=== PATIENT | female | born 1980 | race Caucasian/White ===

== ENCOUNTER 2017-08-15 18:51 | Emergency (ER) | payer SELFPAY ==
--- NOTE | 2017-08-15 19:07 | EDPHY ---
H & P Smoking Status: Never smoked <Maribel Molina - Last Filed: 08/15/17 20:02> <Jose AlejandroRandy Negro - Last Filed: 08/16/17 01:36> Time Seen by Provider: 08/15/17 19:04 HPI/ROS: 37-year-old female presents complaining of severe lower abdominal pain, she is approximately 48 hr status post hysteroscopic ablation of fibroids. Initially she does had some mild cramping and light bleeding however today she has had severe pain all day long with associated nausea and vomiting. (Maribel Molina) Past Medical/Surgical History: right ankle surgery, tendon repair Fibroids (Maribel Molina) Social History: No alcohol or drug use (Maribel Molina) Physical Exam: 37-year-old female in severe distress secondary to lower abdominal pain, vital signs stable, low-grade fever 37.7 HEENT atraumatic normocephalic, extraocular muscles intact, anicteric Oropharynx negative for erythema negative exudate, tolerating her own secretions Neck supple no meningismus Lungs clear to auscultation bilaterally Heart regular rate and rhythm without murmur rub or gallop Abdomen appears mildly distended, bowel sounds quiet, diffuse tenderness from umbilicus to suprapubic area, with positive guarding Nontender above umbilicus Back no CVA tenderness, no step-offs, no spinal tenderness Extremities no cyanosis clubbing or edema right lower ext -ankle with recent surgery, well healing in appearance no calf tenderness Neuro alert and oriented, no focal deficits (Maribel Molina) Constitutional: Initial Vital Signs Temperature (C) 37.7 C 08/15/17 18:52 Heart Rate 86 08/15/17 18:52 Respiratory Rate 18 08/15/17 18:52 Blood Pressure 129/83 H 08/15/17 18:52 O2 Sat (%) 96 08/15/17 18:52 O2 Delivery Mode Room Air Allergies/Adverse Reactions: Sulfa (Sulfonamide Antibiotics) [Sulfa(Sulfonamide Antibiotics)] Allergy ( Verified 08/03/14 10:58) Home Medications: Medication Instructions Recorded Ondansetron Odt [Zofran Odt 4 mg 4 mg PO Q4 PRN #12 tab 08/03/14 (RX)] Macrobid 100 mg Capsule 100 mg 08/15/17 Medical Decision Making <Maribel Molina - Last Filed: 08/15/17 20:02> - Diagnostics Imaging: Discussed imaging studies w/ manufacturing technologist Radiologist <Randy Blount - Last Filed: 08/16/17 01:36> - Diagnostics Imaging Results: Imaging Impressions Abdomen CT 08/15/17 19:36 Impression: 1. Posterior cul-de-sac fluid collection of 6.2 x 4.2 x 4 cm. This may be normal postoperative fluid from ablation, but abscess cannot be excluded. 2. Fluid in the endometrial cavity, with a speckle of air. Endometritis is not excluded. Again, this could also be normal postablation findings. 3. Serpiginous structures, with wall enhancement, right worse than left. Differential includes small bowel fluid-filled loops in the setting of localized ileus from surrounding inflammation, versus salpingitis. The latter is considered because the patient has really no small bowel loops extending down to the pelvis otherwise. 4. Right ovarian cyst. Findings and recommendations discussed with Maribel Molina M.D., at 2108 hours, on 08/15/2017. Final report concurs with initial preliminary interpretation. E:amm ED Course/Re-evaluation: Pt seen and eval begun for lower abd pain s/p hysteroscopy. IV normal saline started Fentanyl 50 mcg given for pain Ondansetron 4 mg given for nausea, repeated x1 Ceftriaxone 2 g IV piggyback ordered to cover endometritis and bowel odette Labs CBC WBC elevated 20 Lactate within normal limits Basic metabolic panel within normal limits CT abdomen and pelvis with contrast pending Impression Rule out endometritis, uterine perforation Plan Patient endorsed to Dr. Blount pending CT abdomen and likely admit to the electromechanical equipment tester covering the one who performed her procedure. She is admitting at [facility] today. (Maribel Molina) I assumed care of the patient at [address] in [address] scan at this point in time. Case reviewed with Dr. Molina. Patient interviewed and examined. CHIEF COMPLAINT: Severe bilateral lower abdominal pain HISTORY OF PRESENT ILLNESS: This is a 29-year-old female who is approximately 48 hr status post hysteroscopy with a uterine ablation. She had postop pain similar to what she had in the past with hysteroscopy for that night as well as yesterday. However since early this morning, approximately 6:00 a.m. she has had a progressive steady constant, getting worse, pain in the lower abdomen. It does not radiate to the back. Is localized to the lower abdomen both right and left. It is so bad that she is unable to stand up straight and hurts when she walks. There has been some attempts at her to take some fluids and to get up but each time she vomited. Total of 2 times. There has been no emesis, no diarrhea. She has had some mild vaginal bleeding. The pain is severe, unrelenting, sharp, does not radiate, and has not been improved by [id number] medicines at home. Initially she went to [facility] but as there was a 2 her weight she opted to come over here because she was in so much pain.. Of note, on Dr. Molina's exam she finds her to have acute abdomen, which I agree, and the plan is for to be admitted however a CT scan is pending to rule out perforation. Patient relates that she has had some mild terminal dysuria for several weeks. When seen preoperatively 8 days ago in the office urinalysis was performed. Your results were phoned to her on Friday, August 13 and she was initiated on Macrobid therapy having taking it for the 48 hr prior to the surgical procedure. Thus evidently the culture results were known at the time of backward selection. I have made attempts to get access to would review this urinalysis and culture results on the [facility] web site but have been unable to find anything related to that. REVIEW OF SYSTEMS: Constitutional: No fever, no chills - but she has a mild low-grade fever 37.7 here Eyes: No discharge ENT: No sore throat. Cardiovascular: No chest pain, no palpitations. Respiratory: No cough, shortness of breath, or wheezing. Gastrointestinal: See above Genitourinary: See above Musculoskeletal: No back pain. Skin: No rashes. Neurological: No headache. 10 point ROS otherwise negative General Appearance: Alert, no distress. Mild fever noted on vital signs however she does not feel overtly warm to the touch. Normal phonation. No respiratory distress. Looks to be in pain Eyes: Pupils equal and round no pallor or injection. No icterus ENT, Mouth: Mucous membranes slightly dry Pharynx without erythema or exudate. TM Clear. Neck: No adenopathy. Supple. No JVD. Trachea in midline. Respiratory: There are no retractions, lungs are clear to auscultation. Chest wall: Nontender to palpation. No crepitus. Cardiovascular: Regular rate and rhythm, without murmur. Abdomen: There is tenderness with rebound guarding to the bilateral lower quadrants left equals right with percussion sensitivity as well., no masses, bowel sounds normal. Bowel sounds are present Neurological: Ox3. No motor weakness. Sensation intact. Gait nl. Skin: Warm and dry, no rashes. Musculoskeletal: No joint swelling. Extremities: No edema. Homans sign negative. No cords. Psychiatric: Normal affect. Patient is oriented X 3. There is no agitation Interventions to date hip included: fentanyl 50 mcg IV as well as a 2nd L of IV fluids hanging as well as 2 g of ceftriaxone. She was going to try to give us a urine prior to the ceftriaxone 2044:Laboratory review as follows: White count 20.6 Normal electrolytes Normal lactic acid CT scan reading pending. As to Pain Management the fentanyl worn off as would be expected. I reviewed with her that in the past morphine and Vicodin is given her itchiness without rash however Percocet and Dilaudid were tolerated well. Thus we will transition her to Dilaudid. CT scan of Abdomen & Pelvis: Performed with IV contrast. Interpreted by radiologist. Films reviewed by me. Findings as follows: There is a large fluid collection 11 Hounsfield units posterior to the uterus the 6.4 x 4.5 x 4 cm most likely compatible with blood. 100 cc incised approximately. There is some air in the in the uterine cavity as well as fluid compatible with postsurgical changes but cannot be discriminated against endometritis. There is also a fluid collection bilateral lower quadrants compatible with either hydrosalpinx versus a bowel ileus. At 9:20 p.m. I discussed the case with Dr. Tinsley who is test inspection engineer for this [employer]. We discussed the case with the findings and management. Further, she opted to call and speak to the radiologist directly. 2139: Dr. Tinsley concurred with adding IV Flagyl and sending pt to [facility] for direct admit - calls being made. pt aware, requests to go by private car. Warmed. (Randy Blount) Differential Diagnosis: Differential diagnosis considered but not limited to: Endometritis, uterine perforation, appendicitis, diverticulitis, ruptured ovarian cyst, tubo-ovarian abscess (Maribel Molina) - Data Points Laboratory Results: Laboratory Results 08/15/17 19:10 08/15/17 19:10 08/15/17 08/15/17 08/15/17 20:35 19:10 19:10 WBC 20.65 10^3/uL H 10^3/uL (3.80-9.50) RBC 4.47 10^6/uL 10^6/uL (4.18-5.33) Hgb 13.3 g/dL g/dL (12.6-16.3) Hct 38.9 % % (38.0-47.0) MCV 87.0 fL fL (81.5-99.8) MCH 29.8 pg pg (27.9-34.1) MCHC 34.2 g/dL g/dL (32.4-36.7) RDW 12.6 % % (11.5-15.2) Plt Count 238 10^3/uL 10^3/uL (150-400) MPV 8.3 fL L fL (8.7-11.7) Neut % (Auto) 85.5 % H % (39.3-74.2) Lymph % (Auto) 7.5 % L % (15.0-45.0) [place] % (Auto) 6.2 % % (4.5-13.0) Eos % (Auto) 0.0 % L % (0.6-7.6) Baso % (Auto) 0.2 % L % (0.3-1.7) Nucleat RBC Rel Count 0.0 % % (0.0-0.2) Absolute Neuts (auto) 17.67 10^3/uL H 10^3/uL (1.70-6.50) Absolute Lymphs (auto) 1.54 10^3/uL 10^3/uL (1.00-3.00) Absolute Monos (auto) 1.27 10^3/uL H 10^3/uL (0.30-0.80) Absolute Eos (auto) 0.00 10^3/uL L 10^3/uL (0.03-0.40) Absolute Basos (auto) 0.04 10^3/uL 10^3/uL (0.02-0.10) Absolute Nucleated RBC 0.00 10^3/uL 10^3/uL (0-0.01) Immature Gran % 0.6 % % (0.0-1.1) Immature Gran # 0.13 10^3/uL H 10^3/uL (0.00-0.10) VBG Lactic Acid Sodium 138 mEq/L mEq/L (134-144) Potassium 3.9 mEq/L mEq/L (3.5-5.2) Chloride 102 mEq/L mEq/L (97-110) Carbon Dioxide 22 mEq/l mEq/l (22-31) Anion Gap 14 mEq/L mEq/L (8-16) BUN 13 mg/dL mg/dL (7-23) Creatinine 0.7 mg/dL mg/dL (0.6-1.0) Estimated GFR > 60 Glucose 122 mg/dL H mg/dL (70-100) Calcium 9.1 mg/dL mg/dL (8.5-10.4) Urine Color DARK YELLOW Urine Appearance HAZY Urine pH 6.0 (5.0-7.5) Ur Specific [place] 1.010 (1.002-1.030) Urine Protein TRACE H (NEGATIVE) Urine Ketones TRACE H (NEGATIVE) Urine Blood 2+ H (NEGATIVE) Urine Nitrate NEGATIVE (NEGATIVE) Urine Bilirubin NEGATIVE (NEGATIVE) Urine Urobilinogen 0.2 EU EU (0.2-1.0) Ur Leukocyte Esterase NEGATIVE (NEGATIVE) Urine RBC 10-15 /hpf H /hpf (0-3) Urine WBC OCCASIONAL /hpf /hpf (0-3) Ur Epithelial Cells 1+ /lpf /lpf (NONE-1+) Urine Bacteria TRACE /hpf H /hpf (NONE SEEN) Hyaline Casts OCCASIONAL /lpf /lpf (0-1) Urine Mucus 2+ /lpf H /lpf (NONE-1+) Urine Glucose NEGATIVE (NEGATIVE) 08/15/17 19:10 WBC RBC Hgb Hct MCV MCH MCHC RDW Plt Count MPV Neut % (Auto) Lymph % (Auto) [place] % (Auto) Eos % (Auto) Baso % (Auto) Nucleat RBC Rel Count Absolute Neuts (auto) Absolute Lymphs (auto) Absolute Monos (auto) Absolute Eos (auto) Absolute Basos (auto) Absolute Nucleated RBC Immature Gran % Immature Gran # VBG Lactic Acid 1.5 mmol/L mmol/L (0.7-2.1) Sodium Potassium Chloride Carbon Dioxide Anion Gap BUN Creatinine Estimated GFR Glucose Calcium Urine Color Urine Appearance Urine pH Ur Specific [place] Urine Protein Urine Ketones Urine Blood Urine Nitrate Urine Bilirubin Urine Urobilinogen Ur Leukocyte Esterase Urine RBC Urine WBC Ur Epithelial Cells Urine Bacteria Hyaline Casts Urine Mucus Urine Glucose Medications Given: Discontinued Medications Fentanyl (Sublimaze) 50 mcg IVP EDNOW ONE Stop: 08/15/17 19:19 Last Admin: 08/15/17 19:20 Dose: 50 mcg Fentanyl (Sublimaze) 50 mcg IVP EDNOW ONE Stop: 08/15/17 20:21 Last Admin: 08/15/17 20:26 Dose: 50 mcg Hydromorphone HCl (Dilaudid) 0.5 mg IVP EDNOW ONE Stop: 08/15/17 20:35 Last Admin: 08/15/17 20:44 Dose: 0.5 mg Hydromorphone HCl (Dilaudid) 0.5 mg IVP EDNOW ONE Stop: 08/15/17 22:43 Last Admin: 08/15/17 22:43 Dose: 0.5 mg Sodium Chloride (Ns) 1,000 mls @ 0 mls/hr IV ONCE ONE PRN Reason: Wide Open Stop: 08/15/17 19:19 Last Admin: 08/15/17 19:19 Dose: 1,000 mls Sodium Chloride (Ns) 1,000 mls @ 0 mls/hr IV ONCE ONE PRN Reason: Wide Open Stop: 08/15/17 19:19 Last Admin: 08/15/17 19:30 Dose: Not Given Ceftriaxone Sodium 2 gm/ (Sodium Chloride) 50 mls @ 100 mls/hr IV EDNOW ONE PRN Reason: Protocol Stop: 08/15/17 20:22 Last Admin: 08/15/17 20:19 Dose: 50 mls Metronidazole/Sodium Chloride (Flagyl 500 Mg (Premix)) 100 mls @ 100 mls/hr IV EDNOW ONE PRN Reason: Protocol Stop: 08/15/17 22:49 Last Admin: 08/15/17 21:52 Dose: 100 mls Ondansetron HCl (Zofran) 4 mg IVP EDNOW ONE Stop: 08/15/17 19:19 Last Admin: 08/15/17 21:07 Dose: 4 mg Ondansetron HCl (Zofran) 4 mg IVP EDNOW ONE Stop: 08/15/17 19:19 Last Admin: 08/15/17 19:30 Dose: Not Given Ondansetron HCl (Zofran) 4 mg IVP EDNOW ONE Stop: 08/15/17 19:45 Last Admin: 08/15/17 19:45 Dose: 4 mg Departure <Maribel Molina - Last Filed: 08/15/17 20:02> <Randy Blount - Last Filed: 08/16/17 01:36> - Departure Disposition: Acute Care Hospital Not [facility] Referrals: José Taylor MD [Primary Care Provider] - As per Instructions
[2017-08-15] MEDS ORDERED: ONDANSETRON 4 MG/2 ML VIAL ONE (19:13)
[2017-08-15 19:14] LABS: PLATELET COUNT 238 10^3/uL (150-400)
[2017-08-15] MEDS ORDERED: fentaNYL 100 MCG/2 ML INJ ONE (19:16)
[2017-08-15] MEDS ORDERED: NS 1,000 ML IV ONE ×2 (19:18)
[2017-08-15] MEDS ORDERED: fentaNYL 100 MCG/2 ML INJ IVP ONE ×2 (19:18→20:20)
[2017-08-15] MEDS ORDERED: ONDANSETRON 4 MG/2 ML VIAL IVP ONE ×3 (19:18→19:44)
[2017-08-15] MEDS ORDERED: IOPAMIDOL (ISOVUE-300) 100 ML BTL ONE (19:47)
[2017-08-15] MEDS ORDERED: cefTRIAXone 1 GM VIAL ONE (19:55)
[2017-08-15] MEDS ORDERED: HYDROmorphONE/DILAUDID 1 MG/ML INJ IVP ONE ×2 (20:34→22:42)
[2017-08-15 21:19] VITALS: RESP 18
[2017-08-15] MEDS ORDERED: *PHM DO NOT USE-METRONIDAZOLE 5 MG/ML IV PED/NEWBORN SYR IV ONE (21:43)
[2017-08-15] MEDS ORDERED: METRONIDAZOLE 500 MG/NACL/100 ML BAG IV ONE (21:46)
[2017-08-15 22:57] VITALS: BP 112/64; PULSE 92; TEMP 100.2; O2SAT 95
== END 2017-08-15 22:59 | disposition short-term general hospital (02) ==
LOC: CED 18:51
DX: N71.9 Inflammatory disease of uterus, unspecified (principal); R11.2 Nausea with vomiting, unspecified
CPT/HCPCS: 74177-PO; 80048-PO; 81003-PO; 81015-PO; 83605-PO; 85025-PO; 96365; J0696; J1170; J2405; J3010; Q9967